=== PATIENT | female | born 1985 | race Caucasian/White ===

== ENCOUNTER 2020-07-12 09:12 | Emergency (ER) | payer OTHER ==
[~2020-07-12] VITALS: Ht 157.5 cm; Wt 77.1 kg
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
--- NOTE | 2020-07-12 13:57 | EKG ---
[facility] [place] [address] ELECTROCARDIOGRAM REPORT Name: HOLGER LEYVA Room #: REG [facility]#: [id number] Admission: 07/12/20 Attend Phys: Discharge: Date of : 89 Report #: [id number] THIS REPORT FOR: cc: Arcelia Peacock MD, Ellen S. MD Santiago, Patrick MD [facility] ~ THIS REPORT FOR: //name// [facility] ED Test Date: 2020-07-12 Test Time: 12:01:56 Pat Name: HOLGER LEYVA Department: Room: Gender: F Critical Care Clinical Nurse Specialist: johnnie : 1985 Requested By: Kip Das Order Number: [id number] MD: Alan Lynch Measurements Intervals [place] Rate: 91 P: 40 HI: 162 QRS: 50 QRSD: 97 T: 21 QT: 385 QTc: 474 Interpretive Statements Sinus rhythm No previous ECG available for comparison Electronically Signed On 07-12-2020 13:57:13 CDT by Alan Lynch [email or web address] <ELECTRONICALLY SIGNED> By: Alan Lynch MD, [facility] 07/12/20 1357 D: 091200 120 Alan Lynch MD, FACC /EPI
[2020-07-12 14:05] VITALS: BP 103/80
== END 2020-07-12 14:26 | disposition home or self-care (01) ==
LOC: ER 09:12
DX: T40.4X1A Poisoning by other synthetic narcotics, accidental (unintentional), initial encounter (principal); F41.9 Anxiety disorder, unspecified; F17.210 Nicotine dependence, cigarettes, uncomplicated; Y92.89 Other specified places as the place of occurrence of the external cause